=== PATIENT | male | born 1935 | race Asian ===

== ENCOUNTER 2017-07-18 12:01 | Emergency (ER) | payer OTHER ==
[~2017-07-18] VITALS: Ht 160 cm; Wt 56.7 kg
[2017-07-18 12:02] VITALS: Ht 160 cm; Wt 56.7 kg
[2017-07-18 12:50] VITALS: BP 120/72
== END 2017-07-18 12:50 | disposition home or self-care (01) ==
LOC: ED 12:01
DX: S61.237A Puncture wound without foreign body of left little finger without damage to nail, initial encounter (principal); Z86.79 Personal history of other diseases of the circulatory system; W22.8XXA Striking against or struck by other objects, initial encounter; Y93.89 Activity, other specified; Y92.89 Other specified places as the place of occurrence of the external cause; Y99.8 Other external cause status

== ENCOUNTER → 2018-07-24 | Outpatient (REF) | LOC: LB 09:28 ==